=== PATIENT | female | born 1950 | race Two or more races ===

== ENCOUNTER 2021-07-04 21:29 | Inpatient (IN) | payer MEDICARE, OTHER ==
[~2021-07-04] VITALS: Ht 142.2 cm; Wt 45.4 kg
--- NOTE | 2021-07-04 23:43 | NUR ---
RN NOTES: HOMELESS PATIENT ADMITTED FROM [facility], 70 Y/O Female, accompanied by 3 school inspector, ARRIVED BY JANET, PATIENT IS ABLE TO VERBALIZE, ALERT/ORIENTED X4. CHIEF COMPLAINT OF COPD EXACERBATION. COVID-19 NEGATIVE. HX OF HTN/COPD, VITALS TAKEN: NO FEVER, STABLE VITAL SIGNS: BP 111/70, HR 75, RR 33, O2 SATURATION 89% on 2L NC. PULMONARY EMBOLISM RULED OUT. COMPLAINS OF SOB AND COUGH.
[2021-07-05] MEDS ORDERED: IPRATROPIUM NEB FS 0.5 MG/2.5 ML AMPUL.NEB NEB PRN
[2021-07-05] MEDS ORDERED: ONDANSETRON HCL/PF 4 MG/2 ML VIAL IVP PRN
[2021-07-05] MEDS ORDERED: ACETAMINOPHEN 325 MG TABLET PO PRN
[2021-07-05] MEDS ORDERED: ZOLPIDEM TARTRATE 5 MG TABLET PO PRN
[2021-07-05] MEDS ORDERED: Z GUARD REMEDY 2 OZ OINT TP PRN
[2021-07-05] MEDS: IV NS 0.9% 1,000 ML IV PRN ×2 (02:31→17:24)
[2021-07-05] MEDS ORDERED: ALBUTEROL FS 2.5 MG/3 ML VIAL.NEB NEB SCH (03:30)
[2021-07-05] MEDS: ENOXAPARIN SODIUM 40 MG/0.4 ML DISP.SYRIN SQ SCH ×3 (03:55→20:33)
[2021-07-05] MEDS: methylPREDNISolone SOD SUCC 40 MG/ML VIAL IV SCH ×3 (04:39→20:21)
[2021-07-05 07:13] LABS: HEMATOCRIT 36 % (33-45); HEMOGLOBIN 11.9 g/dL (11.5-14.8); LYMPHOCYTES # (AUTO) 0.8 K/uL (0.8-4.8); LYMPHOCYTES % (AUTO) 6.8 % (20.0-44.0); MEAN CORPUSCULAR HGB CONC 33 g/dl (31.0-36.0); MEAN CORPUSCULAR VOLUME 87 fL (82-100); MONOCYTES # (AUTO) 0.3 K/uL (0.1-1.30); MONOCYTES % (AUTO) 2.4 % (2.0-12.0); NEUTROPHILS # (AUTO) 10.3 K/uL (1.8-8.9); NEUTROPHILS % (AUTO) 90.8 % (43.0-81.0); PLATELET COUNT (AUTO) 228 K/uL (150-450); RED BLOOD CELL COUNT(AUTO) 4.19 MIL/uL (4.0-5.2); WHITE BLOOD COUNT (AUTO) 11.3 K/uL (4.3-11.0)
[2021-07-05 07:28] LABS: THYROID STIMULATING HORMONE 0.328 uIU/mL (0.358-3.74)
[2021-07-05 07:34] LABS: CALCIUM, SERUM 8.8 mg/dL (8.5-10.1); CREATININE 0.8 mg/dL (0.6-1.3); MAGNESIUM 2.8 mg/dL (1.8-2.4); PHOSPHORUS 3.7 mg/dL (2.5-4.9); POTASSIUM 3.1 mmol/L (3.5-5.1)
--- NOTE | 2021-07-05 07:45 | NUR ---
PERL SOFTWARE ENGINEER OPEN NOTES RECEIVED PATIENT IN THE BED ALERT AND ORIENTED X4. ON TELE MONITOR HR SR 84, ON 3 L NC OXYGEN, NO SOB NOTED, ABLE TO EAT BREAKFAST ITSELF, LAC HL INTACT AND FLUSHING WELL, ON IV FLUIDS ORDER, PLAN OF CARE DISCUSSED WITH THE PT, SAFETY MEASUREMENTS IN PLACE, CALL LIGHT WITHIN REACH, BED IN THE LOWEST POSITION AND LOCKED, WILL CONTINUE TO MONITOR
[2021-07-05] MEDS: FLUTICASONE/VILANTEROL 1 EACH BLST.W.DEV IH SCH (08:08)
[2021-07-05] MEDS: PANTOPRAZOLE 40 MG TABLET.DR PO SCH (08:09)
[2021-07-05] MEDS: CEFTRIAXONE 1 G in IV D5W 50 ML IV SCH (08:09)
[2021-07-05] MEDS ORDERED: ALBU18HF2 IH (08:20)
[2021-07-05] MEDS ORDERED: FLUT1DIS5 IH (08:20)
[2021-07-05] MEDS ORDERED: ATOR10TA PO (08:20)
[2021-07-05] MEDS ORDERED: HYDR25TA4 PO (08:20)
[2021-07-05 08:24] VITALS: BP 109/64
[2021-07-05] MEDS: DOXYCYCLINE 100 MG in IV D5W 100 ML IV SCH ×2 (08:52→20:21)
--- NOTE | 2021-07-05 11:09 | NUR ---
MS RN NOTES PT SWAB FOR PCR SPECIMEN SENT TO LABORATORY
[2021-07-05] MEDS: IPRATROPIUM/ALBUTEROL INHALER IH SCH ×2 (11:37→13:28)
--- NOTE | 2021-07-05 14:15 | NUR ---
RN NOTE PER DR ELIAS CHEST X RAY IN AM
[2021-07-05 15:57] VITALS: BP 95/54
--- NOTE | 2021-07-05 18:22 | NUR ---
MS RN NOTE ALL NEEDS ATTENDED ,NO SOB NOTED AT THIS TIME ,HAVAB DINNER , ABLE TO EAT SELF, ON IVF ORDERED ,BED IN LOWEST AND LOCKED POSITION , CALL LIGHT WITHIN REACH
--- NOTE | 2021-07-05 19:20 | NUR ---
RN NOTE RECEIVED PATIENT IN BED RESTING ALERT ORIENTED X4 VERBALLY RESPONSIVE ON 3L OXYGEN VIA NASAL CANNULA, O2:97% IV SITE IS ON LEFT AC INTACT PATENT ON NS IV HYDRATION 75CC/HR,AMBULATORY WITH ASSIST CONTIENT TO BOWEL/BLADDER SAFETY MEASURE IMPLEMENT BED IN LOW POSITON AND LOCKED,HEAD OF THE BED ELEVATED CALL LIGHT WITHIN REACH CONTINUE TO MONITOR.
--- NOTE | 2021-07-05 21:00 | NUR ---
RN NOTE PATIENT REFUSED LOVENOX,AFTER EXPLAINED RISKS AND BENEFITS STILL REFUSED CONTINUE TO MONITOR.
[2021-07-05 22:00] VITALS: BP 109/61
[2021-07-06] MEDS: methylPREDNISolone SOD SUCC 40 MG/ML VIAL IV SCH ×3 (04:08→21:26)
--- NOTE | 2021-07-06 07:08 | NUR ---
RN NOTE PATIENT REMAINS ON ALERT ORIENTED X4 VERBALLY RESPONSIVE NO SOB NOT ACUTE DISTRESS NOTED ALL DUE MEDS GIVEN MD ORDERED KEEP CLEAN AND DRY ALL THE TIME ALL NEEDS MET ENDORSE NEXT COMING SHIFT FOR CONTINUATION OF CAR.
[2021-07-06 07:09] LABS: BASOPHILS % (AUTO) 0.1 % (0.0-2.0); HEMATOCRIT 34 % (33-45); HEMOGLOBIN 10.9 g/dL (11.5-14.8); LYMPHOCYTES # (AUTO) 0.8 K/uL (0.8-4.8); LYMPHOCYTES % (AUTO) 5.3 % (20.0-44.0); MEAN CORPUSCULAR HGB CONC 32 g/dl (31.0-36.0); MEAN CORPUSCULAR VOLUME 87 fL (82-100); MONOCYTES # (AUTO) 0.5 K/uL (0.1-1.30); NEUTROPHILS # (AUTO) 14.3 K/uL (1.8-8.9); NEUTROPHILS % (AUTO) 91.6 % (43.0-81.0); PLATELET COUNT (AUTO) 262 K/uL (150-450); RED BLOOD CELL COUNT(AUTO) 3.86 MIL/uL (4.0-5.2); WHITE BLOOD COUNT (AUTO) 15.7 K/uL (4.3-11.0)
--- NOTE | 2021-07-06 07:30 | NUR ---
MS RN OPENING NOTES RECEIVED PATIENT, AWAKE ON BED AND A/O X4. ON 02 AT 2LPM VIA [employer] CANNULA TOLERATING WELL. NO SOB NOTED. NOT IN DISTRESS. ABLE TO MAKE NEEDS KNOWN. WITH NO COMPLAINTS OF PAIN AT THIS TIME. WITH IV ACCESS AT LEFT AC G20 WITH IVF NS AT 75ML/HR INFUSING WELL. SAFETY MEASURES IN PLACE. CALL LIGHT WITHIN REACH. BED ON LOWEST AND LOCKED POSITION, SIDE RAILS UP X2. WILL CONTINUE TO MONITOR.
[2021-07-06] MEDS: PANTOPRAZOLE 40 MG TABLET.DR PO SCH (08:07)
[2021-07-06] MEDS: POTASSIUM CHLORIDE 20 MEQ TAB.PRT.SR PO SCH (08:07)
[2021-07-06] MEDS: CEFTRIAXONE 1 G in IV D5W 50 ML IV SCH (08:09)
[2021-07-06] MEDS: IV NS 0.9% 1,000 ML IV PRN (08:15)
[2021-07-06] MEDS: FLUTICASONE/VILANTEROL 1 EACH BLST.W.DEV IH SCH (08:26)
[2021-07-06] MEDS: DOXYCYCLINE 100 MG in IV D5W 100 ML IV SCH ×2 (09:30→21:26)
[2021-07-06 10:00] VITALS: BP 107/60
--- NOTE | 2021-07-06 16:01 | NUR ---
"SS Consult : SS Consult requested for homelessness. Pt. is a 70-year-old female. Per the EMR, the pt. presented to the ER with SOB. Upon SS consult, pt. is A&O x4. Pt. appeared unkempt and provided appropriate eye contact. Pt. presented with a depressed mood and congruent affect. Pt. presented with a tangential thought process and low speech. SW explored pt.s support system. Pt. gave a primary contact as her friend, Esha Miner but could not provide a phone number. SW explored pt.s living situation. Pt. stated they have been homeless for many years. Pt. stated they [place] [address] [facility] [place]. SW offered homeless resources and pt. accepted them. SW offered placement at a SNF but the pt. refused. SW explored pt.s ambulatory status. Pt. stated she was ambulatory and used a walker when needed. SW explored pt.s financial status. Pt. stated they do not receive SSI, GR, Disability. SW explored substance abuse hx. Pt. stated they had a history of alcohol and methamphetamine use. Pt. stated they had not used drugs or alcohol in a year. SW explored psychiatric hx. Pt. stated they do not have any Hx. of mental illness. Pt. denied visual/auditory hallucinations. Pt. denied SI. Pt. expressed they were having fleeting thoughts of homicide. SW assessed if there was a specific victim. Pt. didnt specify anyone in particular. Pt. stated I wouldnt actually hurt anyone. SW provided pt. with mental health and homeless resources and pt. accepted them. Plan: Per EMR, manager case is working on possible SNF placement. SW will be available as needed. Pt. signed the homeless waiver and it was placed in the pt.s chart. Year-round shelters: [place] [place] [address] [place], [place] [id number] ; [facility] [place] [address] [place] [address]; [facility] [id number] [facility] [address] Winter Shelters: [place] Alcira Lozano Provider: [facility] [place] Address: [address] [place] [address] [place], [address] # of Beds: 47 Population Served: [facility] 6 | [facility] Provider: [facility] Address: [address] [facility], [address] # of Beds: 66 Population Served: [facility] [place] Provider: First to Serve Address: [address] [facility], [address] # of Beds: 56 Population Served: [facility] [place] Provider: [facility] Address: [address] [facility], [address] # of Beds: 49 Population Served: [facility] 8 | [place] Provider: First to Serve Address: [address] [place], [address] # of Beds: 37 Population Served: [facility] Hygiene: [facility]: [address] [facility] ; [facility] [address] [facility] ; [facility] 6[address] [facility] . Food Resources: [place] [facility] at [facility]- [address] [facility]; Meet Each Need with Dignity ([facility]) [address] [facility]; [facility] 4348 [facility]; [facility] 8509 [facility]. Mental Health resources provided: [facility] [address] [place] [address] ; [facility] [address], [place] [address] ; Monique Chinchilla [facility] [address] [place] [address] ; [facility] [address] [place], [place] [id number] Healthcare Clinics: [facility] [address] [place], [address] [place]. [place] ; [facility] [address] [facility] [address] [place] [address]; [facility] [place] [address] [place] [phone] Counseling--Outpatient [facility] [address] [facility], [place] [address] (Specializes in in-depth psychotherapy for emotional distress: anxiety, depression, interpersonal conflicts, life transitions, childhood abuse) [facility] [address] [place] [address] (Assist with solving problem marital difficulties, separation & divorce, aging parents, & grief, chronic & terminal illness) [facility] [address] [place] [address] (Deal with loss & grief, anxiety, marital difficulties) Homebound/Mental Health Services [address] [facility] [address] [place] [address] (Provide in-home mental services to people who are incapable of leaving their homes) [facility] the Elderly [facility] [address] [place] [address] [facility] [address] [facility] [place] [address] PSYCHIATRIC OUTPATIENT SERVICES [facility] Partial Hospitalization and Intensive Outpatient Program (Managed Care and [place] Only)[address] [address]. [facility] [phone] [facility] Partial Hospitalization and Outpatient [id number] [facility] [facility] [place] [address] [place], [place] [phone] [facility] [id number] [facility] [address] [place], [place] [phone] [facility] Partial Hospitalization and Outpatient [id number] [facility] AngelicaIDYLLWILD, [phone] Substance Abuse resources provided included: [facility] Substance Abuse Self-Helpline ([facility]) ; [facility] [address] [facility]. [place] [address] ; [facility] [place] [address] [facility] [address] ; [facility] [address] [facility] [phone] ; [facility] [address] [facility] [address] ; [facility] [address] [place] [facility] [address] ; [facility] [address] [phone] ; [facility] Substance Abuse Helpline([facility] ; [facility] ; [facility]; Janelle [facility] [place]; [facility] [place]; [facility] Devendra Dominguez; [place] [facility] [place]; [facility] [place]; [facility] [place]; [facility] [place]; Alcoholics Anonymous -SFV; Go-Akaa-Upjdjjn ; Marijuana Anonymous -[facility]; Narcotics Anonymous [email or web address];"
--- NOTE | 2021-07-06 18:56 | NUR ---
MS RN CLOSING NOTES PATIENT RESTING ON BED AND A/O X4. ON 02 AT 2LPM VIA [employer] CANNULA TOLERATING WELL. NO SOB NOTED. NOT IN DISTRESS. ABLE TO MAKE NEEDS KNOWN. WITH NO COMPLAINTS OF PAIN AT THIS TIME. WITH IV ACCESS AT LEFT AC G20 WITH IVF NS AT 75ML/HR INFUSING WELL. SAFETY MEASURES IN PLACE. CALL LIGHT WITHIN REACH. BED ON LOWEST AND LOCKED POSITION, SIDE RAILS UP X2. WILL ENDORSE TO NEXT SHIFT FOR CASSIUS.
[2021-07-06] MEDS: IPRATROPIUM/ALBUTEROL INHALER IH SCH ×2 (19:04→19:46)
--- NOTE | 2021-07-06 19:40 | NUR ---
RN NOTE PT RECEIVED IN BED. PT IS ON 2L OF O2 VIA NC SHOWING NO S/S OF RESP DISTRESS. BREATHING EVEN AND UNLABORED. PT IS A/OX4. ON REGULAR DIET. ABLE TO AMBULATE WITH ASSISTANCE. IV ACCESS NOTED ON LEFT AC #20. LINE FLUSHED, PATENT, AND INTACT WITH NO S/SX OF INFILTRATION. ALL SAFETY MEASURES IMPLEMENTED. CALL LIGHT WITHIN REACH. BED ALARM ON. BED LOCKED AND IN LOWEST POSITION. WILL CONTINUE TO MONITOR AND ASSESS FOR ANY CHANGES DURING SHIFT.
--- NOTE | 2021-07-06 19:51 | NUR ---
RN NOTE SCHEDULED DOSE OF IPRATROPIUM/ALBUTEROL FOR 07/06/21 AT 1930 GIVEN BY BY ARMIN BRO RN ON 07/06 AT 1904.
[2021-07-06 20:00] VITALS: BP 115/68
[2021-07-06] MEDS: ENOXAPARIN SODIUM 40 MG/0.4 ML DISP.SYRIN SQ SCH (21:00)
--- NOTE | 2021-07-06 21:02 | NUR ---
RN NOTE PT REFUSING SCHEDULED DOSE OF LOVENOX. EXPLAINED RISKS AND BENEFITS OF LOVENOX, BUT PT KEPT REFUSING.
[2021-07-07] MEDS: IPRATROPIUM/ALBUTEROL INHALER IH SCH ×3 (01:34→12:31)
[2021-07-07 04:00] VITALS: BP 132/73
[2021-07-07] MEDS: methylPREDNISolone SOD SUCC 40 MG/ML VIAL IV SCH ×2 (05:26→12:31)
--- NOTE | 2021-07-07 06:50 | NUR ---
RN NOTE NO CHANGES IN PT CONDITION DURING SHIFT. PT IS ON 2L OF O2 VIA NC SHOWING NO S/S OF RESP DISTRESS. BREATHING EVEN AND UNLABORED. PT IS A/OX4. ABLE TO AMBULATE WITH ASSISTANCE. IV ACCESS NOTED ON LEFT AC #20. LINE FLUSHED, PATENT, AND INTACT WITH NO S/SX OF INFILTRATION. ALL DUE MEDS GIVEN ORDERED. ALL SAFETY MEASURES IMPLEMENTED. CALL LIGHT WITHIN REACH. BED ALARM ON. BED LOCKED AND IN LOWEST POSITION. WILL ENDORSE TO MORNING SHIFT RN FOR CASSIUS.
--- NOTE | 2021-07-07 07:41 | NUR ---
RN OPENING NOTE PATIENT RECEIVED IN BED RESTING, A & O X4. PATIENT ON 2L VIA NC. NO SIGNS OF LABORED BREATHING AT THIS TIME. WITH L AC 20G, PATENT WITH NO SIGNS OF INFILTRATION. NO DISTRESS NOTED AT THIS TIME. BED LOCKED AND IN LOWEST POSITION, CALL LIGHT WITHIN REACH, 3 SIDE RAILS UP. ALL SAFETY MEASURES IMPLEMENTED. WILL CONTINUE TO MONITOR.
[2021-07-07] MEDS: CEFTRIAXONE 1 G in IV D5W 50 ML IV SCH (08:42)
[2021-07-07] MEDS: POTASSIUM CHLORIDE 20 MEQ TAB.PRT.SR PO SCH (08:42)
[2021-07-07] MEDS: PANTOPRAZOLE 40 MG TABLET.DR PO SCH (08:42)
[2021-07-07] MEDS: FLUTICASONE/VILANTEROL 1 EACH BLST.W.DEV IH SCH (08:51)
[2021-07-07] MEDS ORDERED: PRED50TA PO (09:22)
[2021-07-07] MEDS ORDERED: LEVO500T90 PO (09:22)
[2021-07-07] MEDS: DOXYCYCLINE 100 MG in IV D5W 100 ML IV SCH (09:27)
[2021-07-07] MEDS ORDERED: ALBUTEROL SULFATE INH 18 GM HFA.AER.AD IH PRN (09:30)
[2021-07-07] MEDS ORDERED: FLUTICASONE/SALMETEROL 1 DISK IH SCH (09:30)
[2021-07-07 09:39] LABS: BASOPHILS % (AUTO) 0.1 % (0.0-2.0); HEMATOCRIT 36 % (33-45); HEMOGLOBIN 11.7 g/dL (11.5-14.8); LYMPHOCYTES % (AUTO) 8.6 % (20.0-44.0); MEAN CORPUSCULAR HGB CONC 32 g/dl (31.0-36.0); MEAN CORPUSCULAR VOLUME 88 fL (82-100); MONOCYTES # (AUTO) 0.4 K/uL (0.1-1.30); MONOCYTES % (AUTO) 3.1 % (2.0-12.0); NEUTROPHILS # (AUTO) 10.6 K/uL (1.8-8.9); NEUTROPHILS % (AUTO) 88.2 % (43.0-81.0); PLATELET COUNT (AUTO) 301 K/uL (150-450); RED BLOOD CELL COUNT(AUTO) 4.14 MIL/uL (4.0-5.2)
[2021-07-07 09:48] LABS: CALCIUM, SERUM 8.3 mg/dL (8.5-10.1); POTASSIUM 4.4 mmol/L (3.5-5.1)
[2021-07-07 12:00] VITALS: BP 132/75
[2021-07-07] MEDS ORDERED: MUPIROCIN OINT 2% 22 GM TUBE NS SCH (12:30)
--- NOTE | 2021-07-07 13:14 | NUR ---
RN NOTE PATIENT DISCHARGED PER MD ORDER, MEDICALLY STABLE AT TIME OF DISCHARGE. PATIENT WILL TAKE THE BUS AND STABLE TO WALK ON HER OWN, MOLECULAR BIOLOGY DIRECTOR AWARE OF PATIENT'S SITUATION.
[2021-07-07] MEDS ORDERED: ALBUTEROL HALF STRENGTH 1.25 MG/3 ML VIAL.NEB NEB SCH ×2 (14:30→15:30)
[2021-07-07] MEDS ORDERED: IPRATROPIUM NEB FS 0.5 MG/2.5 ML AMPUL.NEB NEB SCH (15:30)
[2021-07-07] MEDS ORDERED: ATORVASTATIN 10 MG TABLET PO SCH (18:00)
[2021-07-08] MEDS ORDERED: HYDROCHLOROTHIAZIDE 25 MG TABLET PO SCH (09:00)
== END 2021-07-07 13:30 | disposition home or self-care (01) | DRG 193 ==
LOC: TELE1 22:58 → MEDSG1 07-05 08:33
PROVIDERS: ADMIT Nurse Practitioner Acute Care; ATTEND Internal Medicine
DX: J15.9 Unspecified bacterial pneumonia (principal); J96.01 Acute respiratory failure with hypoxia; J44.0 Chronic obstructive pulmonary disease with (acute) lower respiratory infection; J44.1 Chronic obstructive pulmonary disease with (acute) exacerbation; I48.91 Unspecified atrial fibrillation; E11.9 Type 2 diabetes mellitus without complications; Z86.16 Personal history of COVID-19; Z87.891 Personal history of nicotine dependence; Z59.00 Homelessness unspecified; Z20.822 Contact with and (suspected) exposure to COVID-19; Z87.01 Personal history of pneumonia (recurrent); E87.6 Hypokalemia; Z95.0 Presence of cardiac pacemaker; Z96.642 Presence of left artificial hip joint; F15.10 Other stimulant abuse, uncomplicated
CPT/HCPCS: 36415; 71045-TC; 80048-TC; 80061-TC; 83540-TC; 83735-TC; 84100-TC; 84443-TC; 85025-TC; 87081-TC; 97116-TC; 97530-TC; G0378; J0696; J1650; J2920; J3490; J7030; J7060; U0003